=== PATIENT | male | born 1960 | race Caucasian/White ===

== ENCOUNTER 2017-11-10 08:11 | Emergency (ER) | payer BC ==
[2017-11-10 08:50] LABS: #Eosinphils 0.2 thou/uL (0.0-0.7); #Lymphocytes 1.4 thou/uL (1.20-3.40); #Monocytes 0.5 thou/uL (0.11-0.59); #Neutrophils 3.5 thou/uL (1.40-6.50); %Basophils 0.4 % (0.0-1.0); %Eosinophils 4.4 % (0.0-10.0); %Lymphocytes 24.2 % (21.0-51.0); %Monocytes 8.2 % (0.0-10.0); %Neutrophils 62.8 % (42.0-75.0); Hemoglobin 18.4 g/dL (14.0-18.0); Mean Corpuscular HGB CONC 34.9 g/dL (32.0-36.0); Mean Corpuscular Hemoglobin 32.2 pg (27.0-31.0); Mean Corpuscular Volume 92.3 fL (78.0-98.0); Mean Platelet Volume 8.2 fL (7.4-10.4); Platelet Count 131 thou/uL (130-400); RBC Distribution Width 12.3 % (11.5-14.5); Red Blood Cell (RBC) Count 5.72 mill/uL (4.70-6.10); White Blood Cell (WBC) Count 5.6 thou/uL (4.8-10.8)
--- NOTE | 2017-11-10 09:06 | RAD ---
CHEST 2 VIEWS: Date: 11/10/17 HISTORY: Nausea. Vomiting. COMPARISON: None. FINDINGS: There are sternotomy wires. Normal cardiac silhouette. Pulmonary vessels and hilum are normal. Costop hrenic angles are clear. No mass. No consolidation. No pneumothorax or osseous abnormalities. IMPRESSION: No acute cardiopulmonary process. POS: [facility]
[2017-11-10 09:14] LABS: CKMB 4.6 ng/mL (0-6.6); Troponin I 0.019 ng/mL (< 0.028)
[2017-11-10 09:55] LABS: Albumin 4.3 g/dL (3.5-5.0)
[2017-11-10 09:56] LABS: Chloride 104 mmol/L (98-107); Potassium 4.3 mmol/L (3.5-5.1); Sodium 136 mmol/L (136-145)
[2017-11-10 09:57] LABS: Calcium 9.1 mg/dL (7.8-10.44); Glucose 112 mg/dL (70-105)
[2017-11-10 09:58] LABS: Globulin 2.6 g/dL (2.4-3.5); Protein, Total 6.9 g/dL (6.0-8.3)
[2017-11-10 09:59] LABS: Anion Gap 14 mmol/L (10-20); Bilirubin, Total 1.3 mg/dL (0.2-1.2); Carbon Dioxide 22 mmol/L (22-29)
[2017-11-10 10:01] LABS: Alkaline Phosphatase 48 U/L (40-150); Calc. Creatinine Clearance 0 mL/min (70-130); Estimated GFR-MDRD 87
[2017-11-10 10:02] LABS: BUN (Urea Nitrogen) 17 mg/dL (8.4-25.7)
[2017-11-10 10:03] LABS: ALT (SGPT) 44 U/L (8-55); AST (SGOT) 32 U/L (5-34)
[2017-11-10 10:04] LABS: Lipase 18 U/L (8-78)
[2017-11-10] MEDS ORDERED: Ondansetron PF 4 MG/2 ML Vial ONE (10:11)
[2017-11-10] MEDS ORDERED: PROPOFOL 200 MG/20 ML VIAL ONE (10:11)
[2017-11-10] MEDS ORDERED: Lidocaine 1% PF 5 ML VIAL ONE (10:11)
[2017-11-10] MEDS ORDERED: Succinylcholine Chloride 20 MG/ML 10 ml SYRINGE FS ONE (10:11)
[2017-11-10] MEDS ORDERED: Midazolam HCl 2 mg/2 ml Vial ONE (13:18)
[2017-11-10] MEDS ORDERED: Fentanyl 100 MCG/2 ML VIAL ONE (13:18)
--- NOTE | 2017-11-10 18:27 | CON ---
DATE OF CONSULTATION: 11/10/2017 GASTROENTEROLOGY CONSULTATION NOTE CHIEF COMPLAINT: "Food stuck in my esophagus." HISTORY OF PRESENT ILLNESS: Mr. Alejandre is a 57-year-old man who had a T-boned steak at home last night around 7:30 p.m. and this got stuck in his esophagus after a couple of bites. He has had hussain nued pressure and discomfort in his chest and with the food stuck in his esophagus and he has had to spit his saliva out ever since into a bag. He has had episodes 1-2 times per year with the food gett ing stuck however, he is usually able to vomit the bolus back up or get this past down. This has bee n going on over the last 3 years. He has had no abdominal pain, no diarrhea, constipation or blood i n stool. No weight loss that is unexplained. He does get occasional heartburn for which he takes Tu ms as needed. PAST MEDICAL HISTORY: Coronary artery disease, hyperlipidemia, seasonal allergies. PAST SURGICAL HISTORY: Triple coronary bypass surgery in 2012. FAMILY HISTORY: Negative for GI malignancy or esophageal cancer. SOCIAL HISTORY: As 4-5 beers per day. He quit smoking in 1983. No drugs. ALLERGIES: No known drug allergies. MEDICATIONS: Plavix, carvedilol, Crestor, aspirin, occasional loratadine for allergies. REVIEW OF SYSTEMS: Negative x10 systems reviewed except as stated in the history of present illness. PHYSICAL EXAMINATION: GENERAL: He is in no acute distress, alert and oriented x3. HEENT: Eyes have no scleral icterus. OROPHARYNX: Clear, without lesions. NECK: No cervical or supraclavicular lymphadenopathy. LUNGS: Clear to auscultation bilaterally. HEART: Regular rate and rhythm without murmur. ABDOMEN: Soft, nontender, nondistended. Bowel sounds are present. EXTREMITIES: No lower extremity edema. IMPRESSION: Esophageal food bolus impaction. He has had recurrent occasional food boluses over the last 3 years that usually passed spontaneously. He has had some intermittent acid reflux symptoms controlled with Tums. He has had no prior endoscopy or colonoscopy. RECOMMENDATIONS: 1. Esophagogastroduodenoscopy today. 2. Recommend followup EGD likely in a month or so depending on endoscopic findings today at which po int if he has a stricture could be dilated. He can also undergo a screening colonoscopy at that time . During this exam today, we will evaluate for stricture or eosinophilic esophagitis and rule out ma lignancy. Biopsies will be done today, but esophageal dilation will unlikely be performed given the duration of the food bolus impaction and the ongoing use of aspirin and Plavix.
--- NOTE | 2017-11-10 19:31 | OP ---
DATE OF PROCEDURE: 11/10/2017 PROCEDURE: Esophagogastroduodenoscopy with removal of foreign body and biopsy. PREOPERATIVE DIAGNOSIS: Esophageal food bolus impaction. OPERATIVE NOTE: Informed consent was obtained from the patient, but he was sedated with general anes thesia. The endoscope was advanced to the esophagus where a food bolus was encountered. This was gr asped with a medium polypectomy snare and pulled out through the patient's mouth. Remainder of the f ood particles were then pushed through to the stomach. He did have a stricture in the lower esophagu s with a circumferential ulcer about a centimeter in length at the GE junction. There was erosive ga stritis. Retroflexed views in the stomach were normal. There was severe erosive duodenitis in the f irst and second portions of the duodenum. Gastric biopsies were obtained to rule out H. pylori. Bio psies were obtained from the esophageal ulcer to rule out any neoplastic process. IMPRESSION: 1. Esophageal foreign body removed with the snare. 2. 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 Biopsies were obtained. 3. Erosive gastritis and severe erosive duodenitis in the first and second portions of the duodenum. RECOMMENDATIONS: 1. Pantoprazole twice daily. 2. Repeat EGD in 4-6 weeks to dilate the esophageal stricture and assess for healing with proton pum p inhibitor. 3. Screening colonoscopy can be done at the time of the EGD.?
== END 2017-11-10 15:45 | disposition admitted as inpatient to this hospital (09) ==
LOC: ERS 08:11
DX: T18.128A Food in esophagus causing other injury, initial encounter (principal); E78.5 Hyperlipidemia, unspecified; I10 Essential (primary) hypertension; I25.2 Old myocardial infarction; I45.10 Unspecified right bundle-branch block; Z79.82 Long term (current) use of aspirin; Z79.899 Other long term (current) drug therapy
CPT/HCPCS: 36415; 71046; 80053; 82553; 83690; 84484; 85025; 88305; 88312; 88313; 93005; 96374; 96375; J2001; J2250; J2405; J2704; J3010

== ENCOUNTER 2020-11-22 | Outpatient (CLI) | payer BC | END 2020-11-22 08:07 | disposition home or self-care (01) ==

== ENCOUNTER 2021-01-29 12:53 | Outpatient (CLI) | payer BC ==
[2021-01-29 14:02] LABS: #Eosinphils 0.4 10x3/uL (0.0-0.5); #Monocytes 0.6 10x3/uL (0.0-1.1); #Neutrophils 3.6 10x3/uL (1.5-8.4); %Basophils 0.6 % (0.0-2.0); %Eosinophils 6.2 % (0.0-6.0); %Lymphocytes 29.2 % (18.0-47.0); %Monocytes 8.7 % (0.0-10.0); Hemoglobin 16.9 g/dL (13.5-17.5); Mean Corpuscular HGB CONC 36.2 g/dL (32.0-36.0); Mean Corpuscular Hemoglobin 32.2 pg (27.0-33.0); Mean Platelet Volume 10.9 fl (7.4-10.4); Platelet Count 132 10x3/uL (150-450); RBC Distribution Width 12.6 % (11.5-14.5); Red Blood Cell (RBC) Count 5.25 10x6/uL (4.32-5.72); White Blood Cell (WBC) Count 6.6 10x3/uL (3.5-10.5)
[2021-01-29 14:05] LABS: Anion Gap 13 mmol/L (10-20); BUN (Urea Nitrogen) 20 mg/dL (8.4-25.7); Calc. Creatinine Clearance 0 mL/min (70-130); Calcium 9.3 mg/dL (7.8-10.44); Carbon Dioxide 24 mmol/L (22-29); Chloride 108 mmol/L (98-107); Glucose 126 mg/dL (70-105); Sodium 141 mmol/L (136-145)
[2021-01-30 00:42] LABS: SARS-CoV-2 PCR by NAA Not Detected (NotDetected)
== END 2021-01-29 12:54 | disposition home or self-care (01) ==
LOC: LABBT 12:53
PROVIDERS: ATTEND Orthopaedic Surgery
DX: Z01.818 Encounter for other preprocedural examination (principal); M75.101 Unspecified rotator cuff tear or rupture of right shoulder, not specified as traumatic; Z20.822 Contact with and (suspected) exposure to COVID-19
CPT/HCPCS: 71046; 80048; 85025; 93005; 93010; U0003; U0005

== ENCOUNTER 2021-02-01 05:47 | Day surgery (SDC) | payer BC ==
[2021-01-30 15:38] VITALS: BMI 30.1
[2021-02-01] MEDS ORDERED: ceFAZolin 2 GM/DEX 5% 100 ML BAG ONE (05:58)
[2021-02-01] MEDS ORDERED: Lidocaine 1% (PF) 30 ML VIAL ONE (06:56)
[2021-02-01] MEDS ORDERED: Midazolam HCl 2 mg/2 ml Vial ONE ×3 (06:56→06:57)
[2021-02-01] MEDS ORDERED: Fentanyl 100 MCG/2 ML VIAL ONE ×3 (06:56→07:32)
[2021-02-01] MEDS ORDERED: Lidocaine 1% PF 5 ML VIAL ONE (07:04)
[2021-02-01] MEDS ORDERED: Ketorolac Tromethamine 30 MG/ML VIAL ONE (07:04)
[2021-02-01] MEDS ORDERED: ePHEDrine 50 MG/ML VIAL ONE (07:04)
[2021-02-01] MEDS ORDERED: Lidocaine 1% w/Epinephrine 1:100K 20 ML VIAL ONE (07:04)
[2021-02-01] MEDS ORDERED: Sodium Chloride 0.9% 10 ML ONE (07:04)
[2021-02-01] MEDS ORDERED: Dexamethasone 20 MG/5 ML VIAL ONE (07:04)
[2021-02-01] MEDS ORDERED: Bupivacaine HCl 0.5%/Epinephrine 1:200,000/PF 30 ml Vial ONE (07:04)
[2021-02-01] MEDS ORDERED: PROPOFOL 200 MG/20 ML VIAL ONE (07:04)
[2021-02-01] MEDS ORDERED: Ondansetron PF 4 MG/2 ML Vial ONE (07:04)
[2021-02-01] MEDS ORDERED: Rocuronium Bromide 10 MG/ML (10ML VIAL) ONE (07:04)
[2021-02-01] MEDS ORDERED: Dexmedetomidine 200 MCG/2 ML VIAL ONE (07:32)
[2021-02-01] MEDS ORDERED: Phenylephrine 10 MG/ML VIAL ONE (07:32)
[2021-02-01] MEDS ORDERED: Ondansetron PF 4 MG/2 ML Vial IVP PRN (09:00)
[2021-02-01] MEDS ORDERED: Promethazine HCl 25 MG/ML VIAL IM PRN (09:00)
[2021-02-01] MEDS ORDERED: Zolpidem Tartrate 5 MG TAB PO PRN (09:00)
[2021-02-01] MEDS ORDERED: Ropivacaine 0.2% 550 ML 550 ML NERVE BLCK SCH (09:00)
== END 2021-02-01 12:15 | disposition home or self-care (01) ==
LOC: SDC 05:47
PROVIDERS: ATTEND Orthopaedic Surgery
PROC: 3E0T3BZ Introduction of Anesthetic Agent into Peripheral Nerves and Plexi, Percutaneous Approach (ICD-10-PCS; principal; 2021-02-01)
PROC: 0LM14ZZ Reattachment of Right Shoulder Tendon, Percutaneous Endoscopic Approach (ICD-10-PCS; principal; 2021-02-01)
PROC: 0LS30ZZ Reposition Right Upper Arm Tendon, Open Approach (ICD-10-PCS; principal; 2021-02-01)
PROC: 0RNJ4ZZ Release Right Shoulder Joint, Percutaneous Endoscopic Approach (ICD-10-PCS; principal; 2021-02-01)
DX: M75.121 Complete rotator cuff tear or rupture of right shoulder, not specified as traumatic (principal); S46.211A Strain of muscle, fascia and tendon of other parts of biceps, right arm, initial encounter; M25.811 Other specified joint disorders, right shoulder; Z79.82 Long term (current) use of aspirin; Z79.899 Other long term (current) drug therapy; Z95.1 Presence of aortocoronary bypass graft
CPT/HCPCS: A4306; C1713; J2001; J2250; J2370; J2795; J3010

== ENCOUNTER 2021-10-16 13:22 | Observation (INO) | payer BC ==
[~2021-10-16 13:22] MED LIST: Iopamidol-370 76% 500 ML 1 ML ONE
[2021-10-16] MEDS ORDERED: Ondansetron PF 4 MG/2 ML Vial ONE (13:46)
[2021-10-16] MEDS ORDERED: Aspirin Chewable 81 MG TAB ONE (14:34)
[2021-10-16 14:40] LABS: #Lymphocytes 1.2 thou/uL (1.20-3.40); #Monocytes 0.2 thou/uL (0.11-0.59); #Neutrophils 9.6 thou/uL (1.40-6.50); %Basophils 0.3 % (0.0-1.0); %Eosinophils 0.3 % (0.0-10.0); %Monocytes 2.1 % (0.0-10.0); %Neutrophils 86.3 % (42.0-75.0); Hemoglobin 18.7 g/dL (14.0-18.0); Mean Corpuscular HGB CONC 34.6 g/dL (32.0-36.0); Mean Corpuscular Volume 95.5 fL (78.0-98.0); Mean Platelet Volume 8.7 fL (7.4-10.4); Platelet Count 148 thou/uL (130-400); RBC Distribution Width 12.4 % (11.5-14.5); Red Blood Cell (RBC) Count 5.67 mill/uL (4.70-6.10); White Blood Cell (WBC) Count 11.1 thou/uL (4.8-10.8)
[2021-10-16 15:05] LABS: ALT (SGPT) 40 U/L (8-55); AST (SGOT) 31 U/L (5-34); Albumin 4.5 g/dL (3.5-5.0); Alkaline Phosphatase 49 U/L (40-110); Anion Gap 15 mmol/L (10-20); BUN (Urea Nitrogen) 27 mg/dL (8.4-25.7); Bilirubin, Total 1.2 mg/dL (0.2-1.2); Calc. Creatinine Clearance 0 mL/min (70-130); Carbon Dioxide 23 mmol/L (22-29); Chloride 106 mmol/L (98-107); Estimated GFR 63; Globulin 2.9 g/dL (2.4-3.5); Glucose 154 mg/dL (70-105); Potassium 3.9 mmol/L (3.5-5.1); Protein, Total 7.4 g/dL (6.0-8.3); Sodium 140 mmol/L (136-145)
[2021-10-16] MEDS ORDERED: Carvedilol 3.125 MG TAB PO SCH (17:00)
[2021-10-16 18:10] LABS: Troponin I 0.013 ng/mL (< 0.028)
[2021-10-16] MEDS ORDERED: Rosuvastatin 20 MG TAB PO SCH (21:00)
[2021-10-16 21:03] LABS: Troponin I 0.011 ng/mL (< 0.028)
[2021-10-16 21:58] VITALS: BMI 29.5
[2021-10-17 05:31] LABS: #Eosinphils 0.5 thou/uL (0.0-0.7); #Lymphocytes 1.6 thou/uL (1.20-3.40); #Neutrophils 11.7 thou/uL (1.40-6.50); %Basophils 0.1 % (0.0-1.0); %Eosinophils 3.1 % (0.0-10.0); %Lymphocytes 11.1 % (21.0-51.0); %Monocytes 6.5 % (0.0-10.0); %Neutrophils 79.3 % (42.0-75.0); Hemoglobin 16.9 g/dL (14.0-18.0); Mean Corpuscular HGB CONC 34.8 g/dL (32.0-36.0); Mean Corpuscular Hemoglobin 33.6 pg (27.0-31.0); Mean Corpuscular Volume 96.5 fL (78.0-98.0); Mean Platelet Volume 8.8 fL (7.4-10.4); Platelet Count 109 thou/uL (130-400); Platelet Morphology Comment Appears Decreased; RBC Distribution Width 12.4 % (11.5-14.5); Red Blood Cell (RBC) Count 5.03 mill/uL (4.70-6.10); White Blood Cell (WBC) Count 14.7 thou/uL (4.8-10.8)
[2021-10-17 05:43] LABS: Anion Gap 16 mmol/L (10-20); BUN (Urea Nitrogen) 24 mg/dL (8.4-25.7); Calc. Creatinine Clearance 114 mL/min (70-130); Calcium 8.7 mg/dL (7.8-10.44); Carbon Dioxide 23 mmol/L (22-29); Cardiac Risk 2.9 (Less than 4.5); Chloride 104 mmol/L (98-107); Cholesterol 122 mg/dl (< 200 Desired); Estimated GFR 96; Glucose 130 mg/dL (70-105); HDL Cholesterol 42 mg/dL (>60 Neg Risk); LDL Cholesterol, Calculated 56 mg/dL; Magnesium 1.7 mg/dL (1.6-2.6); Potassium 4.1 mmol/L (3.5-5.1); Sodium 139 mmol/L (136-145); Triglycerides 118 mg/dL (Less than 150)
[2021-10-17] MEDS ORDERED: Aspirin Chewable 81 MG TAB PO SCH (09:00)
[2021-10-17] MEDS ORDERED: Clopidogrel Bisulfate 75 MG TAB PO SCH (09:00)
[2021-10-17 16:07] VITALS: BP 123/74; TEMP 98
== END 2021-10-17 17:55 | disposition home or self-care (01) ==
LOC: ERS 13:22 → ERHOLD 15:59 → 2SW 21:10
PROVIDERS: ADMIT Internal Medicine; ATTEND Internal Medicine
DX: R42 Dizziness and giddiness (principal); R06.02 Shortness of breath; H53.8 Other visual disturbances; R07.89 Other chest pain; I25.118 Atherosclerotic heart disease of native coronary artery with other forms of angina pectoris; I11.9 Hypertensive heart disease without heart failure; Z20.822 Contact with and (suspected) exposure to COVID-19; K21.9 Gastro-esophageal reflux disease without esophagitis; E78.5 Hyperlipidemia, unspecified; Z79.82 Long term (current) use of aspirin; Z79.899 Other long term (current) drug therapy; Z87.891 Personal history of nicotine dependence; Z95.1 Presence of aortocoronary bypass graft
CPT/HCPCS: 36415; 71045; 71275; 78452; 80048; 80053; 80061; 82550; 83735; 83880; 84484; 85025; 85379; 93005; 93017; 93306; 94760; A9500; G0378; J2405; Q9967; U0003; U0005

== ENCOUNTER 2024-12-09 13:40 | Emergency (ER) | payer BC | END 2024-12-09 17:06 | disposition home or self-care (01) | LOC: ERS 13:40 | DX: M87.051 Idiopathic aseptic necrosis of right femur (principal); M47.816 Spondylosis without myelopathy or radiculopathy, lumbar region; I25.2 Old myocardial infarction; E78.5 Hyperlipidemia, unspecified; K21.9 Gastro-esophageal reflux disease without esophagitis; I10 Essential (primary) hypertension; Z79.899 Other long term (current) drug therapy; Z79.82 Long term (current) use of aspirin | CPT/HCPCS: 72131; 72192 ==